=== PATIENT | female | born 1995 ===

== ENCOUNTER 2017-03-28 13:39 | Emergency (ER) | payer OTHER ==
[2017-03-28 14:08] VITALS: BP 114/76; PULSE 84; RESP 16; TEMP 98; O2SAT 99
--- NOTE | 2017-03-28 14:10 | C.PDOC ---
History Of Present Illness 21 y/o female presents to the ED for evaluation of lumbothoracic back pain which began around 1 week ago. 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 She notes her pain is exacerbated by taking a hot shower. Otherwise, she denies direct trauma/injury to the affected area, urinary/bowl incontinence,upper/lower extremity numbness/weakness. Time Seen by Provider: 03/28/17 14:00 Chief Complaint (Nursing): Back Pain History Per: Patient History/Exam Limitations: no limitations Onset/Duration Of Symptoms: Other (1 week ) Current Symptoms Are (Timing): Still Present Quality Of Discomfort: "Pain" Previous Symptoms: Back Pain Associated Symptoms: denies: Incontinence, New Weakness, New Numbness Additional History Per: Patient Past Medical History Reviewed: Historical Data, Nursing Documentation, Vital Signs Vital Signs: Last Vital Signs Temp 98 F 03/28/17 14:06 Pulse 84 03/28/17 14:06 Resp 16 03/28/17 14:06 BP 114/76 03/28/17 14:06 Pulse Ox 99 03/28/17 14:10 - Medical History PMH: No Chronic Diseases Surgical History: No Surg Hx Family History: States: Unknown Family Hx - Social History Hx Alcohol Use: Yes Hx Substance Use: No Review Of Systems Except As Marked, All Systems Reviewed And Found Negative. Genitourinary: Negative for: Incontinence Musculoskeletal: Positive for: Back Pain Neurological: Negative for: Weakness, Numbness Physical Exam - Physical Exam Appears: Non-toxic, No Acute Distress Skin: Normal Color, Warm, Dry Head: Atraumatic Eye(s): bilateral: Normal Inspection Oral Mucosa: Moist Neck: Supple Chest: Symmetrical, No Deformity, No Tenderness Cardiovascular: Rhythm Regular, No Murmur Respiratory: Normal Breath Sounds, No Rales, No Rhonchi, No Wheezing Back: Paraspinal Tenderness (minor to lumbothoracic regions bilaterally) Extremity: Normal ROM, No Tenderness, Capillary Refill (less than 2 seconds ), No Deformity, No Swelling Neurological/Psych: Oriented x3, Normal Speech, Normal Cognition, Normal Motor, Normal Sensation Gait: Steady ED Course And Treatment O2 Sat by Pulse Oximetry: 99 (on RA) Pulse Ox Interpretation: Normal Progress Note: Patient received Motrin PO. Medical Decision Making Medical Decision Making: muscloskeletal pain @ thoraco-lumbar area, digitally reproducable works "lifting heavy things" worse with heat, no prior NSAIDS/ICE therapy Disposition Doctor Will See Patient In The: Office Counseled Patient/Family Regarding: Studies Performed, Diagnosis - Disposition Referrals: [facility] [Outside] Disposition: HOME/ ROUTINE Disposition Time: 14:10 Condition: GOOD Additional Instructions: ice packs 1/2 hour per hour, nothing hot, no hot showers Motrin/Advil 400-600 mg every 6 hours as needed Pepcid 20 mg @ night to prevent stomach irritation from the Motrin No heavy lifting for 1 week Instructions: Muscle Strain (ED), Core Strengthening Exercises (GEN) Forms: Work Excuse - Clinical Impression Clinical Impression: Low back strain - Scribe Statement The provider has reviewed the documentation as recorded by the Scribe (Milli Andrew) Provider Attestation: All medical record entries made by the Scribe were at my direction and personally dictated by me. I have reviewed the chart and agree that the record accurately reflects my personal performance of the history, physical exam, medical decision making, and the department course for this patient. I have also personally directed, reviewed, and agree with the discharge instructions and disposition.
== END 2017-03-28 14:32 | disposition home or self-care (01) ==
LOC: C.ER 13:39
DX: S39.012A Strain of muscle, fascia and tendon of lower back, initial encounter (principal); X50.0XXA Overexertion from strenuous movement or load, initial encounter; Y93.89 Activity, other specified; Y92.89 Other specified places as the place of occurrence of the external cause

== ENCOUNTER 2017-08-02 13:55 | Emergency (ER) | payer OTHER ==
[2017-08-02 15:18] LABS: RBC URINE 155 /hpf (0-3); URINE BACTERIA RARE (<OCC); URINE BILIRUBIN NEGATIVE (NEGATIVE); URINE BLOOD 3+ (NEGATIVE); URINE COLOR Yellow (YELLOW); URINE GLUCOSE (UA) NORMAL (Normal); URINE KETONE NEGATIVE (NEGATIVE); URINE LEUKOCYTE ESTERASE NEG Leu/uL (Negative); URINE PROTEIN NEGATIVE (NEGATIVE); URINE UROBILINOGEN NORMAL mg/dL (0.2-1.0); WBC URINE 9 /hpf (0-5)
--- NOTE | 2017-08-02 15:27 | C.PDOC ---
History Of Present Illness 21 year old female presents to Emergency Department for evaluation of mild lower abdominal cramping and vaginal bleeding. Patient states that her last menstrual period was on 07/13/17 which lasted for 5 days. Patient states that she had one positive and one negative home tests yesterday. Patient states she had 2 periods few months ago as well. Otherwise, denies nausea, vomiting, diarrhea, changes in bowel habits, dysuria, hematuria, frequency, or fever. Time Seen by Provider: 08/02/17 14:43 Chief Complaint (Nursing): Abdominal Pain History Per: Patient History/Exam Limitations: no limitations Onset/Duration Of Symptoms: Days Current Symptoms Are (Timing): Still Present Quality Of Discomfort: Cramping Associated Symptoms: denies: Loss Of Appetite, Back Pain, Chest Pain, Constipation Alleviating Factors: None Recent travel outside of the [place]: No Additional History Per: Patient Abnormal Vaginal Bleeding: Yes Past Medical History Reviewed: Historical Data, Nursing Documentation, Vital Signs Vital Signs: Last Vital Signs Temp 97.8 F 08/02/17 15:38 Pulse 70 08/02/17 15:38 Resp 16 08/02/17 15:38 BP 104/66 08/02/17 15:38 Pulse Ox 99 08/02/17 16:19 Family History: States: Unknown Family Hx - Social History Hx Alcohol Use: Yes Hx Substance Use: No Review Of Systems Except As Marked, All Systems Reviewed And Found Negative. Constitutional: Negative for: Fever, Chills Cardiovascular: Negative for: Chest Pain, Palpitations Respiratory: Negative for: Cough, Shortness of Breath Gastrointestinal: Positive for: Abdominal Pain. Negative for: Nausea, Vomiting , Diarrhea Genitourinary: Positive for: Vaginal Bleeding. Negative for: Dysuria, Frequency , Hematuria, Vaginal Discharge Musculoskeletal: Negative for: Back Pain Physical Exam - Physical Exam Appears: Non-toxic, No Acute Distress Skin: Normal Color, Warm, Dry Head: Atraumatic, Normacephalic Eye(s): bilateral: Normal Inspection Oral Mucosa: Moist Neck: Normal ROM, Supple Chest: Symmetrical Cardiovascular: Rhythm Regular, No Murmur Respiratory: Normal Breath Sounds, No Rales, No Rhonchi, No Wheezing Gastrointestinal/Abdominal: Normal Exam, Bowel Sounds (normal), Soft, No Tenderness, No Guarding, No Rebound Back: No CVA Tenderness Extremity: Bilateral: Atraumatic, Normal ROM Neurological/Psych: Oriented x3, Normal Speech Gait: Steady ED Course And Treatment O2 Sat by Pulse Oximetry: 99 (RA) Pulse Ox Interpretation: Normal Medical Decision Making Medical Decision Making: Urinalysis ordered and reviewed, negative for Patient in no acute distress with stable vital signs. No signs of hemodynamic instability. Vaginal bleeding is menses and irregular. Advise patient to follow up with router setter, she states she has appointment on the . Disposition Counseled Patient/Family Regarding: Diagnosis, Need For Followup - Disposition Disposition: HOME/ ROUTINE Disposition Time: 15:26 Condition: STABLE Additional Instructions: Please follow up with your router setter for further evaluation. Thank you for letting us take care of you today. Your provider was Jg GREEN. Thank you for allowing the [facility] team to be part of your care today. Instructions: Dysfunctional Uterine Bleeding (ED) Forms: [employer] (Norwegian), Work Excuse - POA Present On Arrival: None - Clinical Impression Clinical Impression: Dysfunctional uterine bleeding - PA / EDUCATIONAL TECHNOLOGY COORDINATOR / Resident Statement MD/DO has reviewed & agrees with the documentation as recorded. - Scribe Statement The provider has reviewed the documentation as recorded by the Scribe Joy Andrew All medical record entries made by the Scribe were at my direction and personally dictated by me. I have reviewed the chart and agree that the record accurately reflects my personal performance of the history, physical exam, medical decision making, and the department course for this patient. I have also personally directed, reviewed, and agree with the discharge instructions and disposition.
[2017-08-02 15:39] VITALS: BP 104/66; PULSE 70; RESP 16; TEMP 97.8
[2017-08-02 16:05] VITALS: O2SAT 99
== END 2017-08-02 15:39 | disposition home or self-care (01) ==
LOC: C.ER 13:55
DX: N93.8 Other specified abnormal uterine and vaginal bleeding (principal)